=== PATIENT | female | born 1980 | race Caucasian/White ===

== ENCOUNTER 2024-10-12 05:46 | Inpatient (IN) | payer OTHER ==
[2024-10-12] MEDS: Cyclobenzaprine 10 MG Tab ONE (06:36)
[2024-10-12] MEDS: Cyclobenzaprine 10 MG Tab PO ONE (06:42)
[2024-10-12] MEDS: Acetaminophen 1,000 MG in Premix Bag 1 BAG IV ONE (06:46)
[2024-10-12] MEDS ORDERED: Bupivacaine 0.5% 50 ML MDV ONE (07:02)
[2024-10-12] MEDS: Lactated Ringers 1,000 ML IV SCH (07:08)
[2024-10-12] MEDS: Acetaminophen 500 MG Tab PO ONE (07:09)
[2024-10-12] MEDS ORDERED: Propofol 200 MG/20 ML SDV ONE (07:15)
[2024-10-12] MEDS ORDERED: Dexamethasone 4 MG/ML SDV ONE (07:15)
[2024-10-12] MEDS ORDERED: Ondansetron 4 MG/2 ML SDV ONE (07:15)
[2024-10-12] MEDS ORDERED: Succinylcholine 200 MG/10 ML MDV ONE (07:15)
[2024-10-12] MEDS ORDERED: Rocuronium 50 MG/5 ML Vial ONE ×2 (07:15→09:27)
[2024-10-12] MEDS ORDERED: Glycopyrrolate 0.2 MG/ML 5 ML MDV ONE (07:15)
[2024-10-12] MEDS ORDERED: Neostigmine Methylsulfate 10 MG/10 ML MDV ONE (07:15)
[2024-10-12] MEDS ORDERED: fentaNYL 250 MCG/5 ML SDV ONE (07:15)
[2024-10-12] MEDS: Heparin Sodium 5,000 Units/ML Vial SUBCUT ONE (07:16)
[2024-10-12] MEDS ORDERED: Ketamine 500 MG/5 ML MDV IV SCH (08:00)
[2024-10-12] MEDS: Bupivacaine 0.5%/EPINEPHrine 1:200,000 50 ML MDV ONE (10:03)
[2024-10-12] MEDS ORDERED: Ketorolac 30 MG/ML SDV ONE (11:25)
[2024-10-12] MEDS ORDERED: Ondansetron 4 MG/2 ML SDV IV PRN (11:27)
[2024-10-12] MEDS: Ondansetron 4 MG/2 ML SDV IVPUSH ONE (12:16)
[2024-10-12] MEDS: SCOPOLAMINE PATCH CHECK TOP SCH (14:58)
[2024-10-12] MEDS: Scopalamine 1mg/3day Transdermal Patch TRDERM SCH (14:58)
[2024-10-12] MEDS ORDERED: Simethicone 125 MG Tab.Chew PO PRN (15:03)
[2024-10-12] MEDS: Cyclobenzaprine 10 MG Tab PO SCH (15:30)
[2024-10-12] MEDS: Acetaminophen 1,000 MG in Premix Bag 1 BAG IV SCH (17:47)
[2024-10-12] MEDS: Ketorolac 15 MG/ML SDV IVPUSH SCH (17:56)
[2024-10-13] MEDS: MVI, Adult with Vitamin K 10 ML, Thiamine 200 MG in Dextrose 5%-Lactated Ringers 1,000 ML IV SCH (06:06)
[2024-10-13] MEDS: Heparin Sodium 5,000 Units/ML Vial SUBCUT SCH (06:12)
[2024-10-13] MEDS: Diatrizoate Meglumine/Diatrizoate Sodium 37% 120 ML Bottle PO SCH (08:38)
[2024-10-13] MEDS: Pantoprazole 40 MG Vial IV SCH (09:56)
== END 2024-10-13 12:55 | disposition home or self-care (01) | DRG 621 ==
LOC: JP.SDSSCHI 05:46 → UNDOADMIN 05:49 → JP.SDSSCHI 05:49 → JP.MS 11:28 → JP.SDSSCHI 11:28 → UNDODISIN 10-13 12:55
PROVIDERS: ADMIT Surgery; ATTEND Surgery
PROC: 0BQT0ZZ Repair Diaphragm, Open Approach (ICD-10-PCS; principal; 2024-10-12 08:00)
PROC: 0D160ZA Bypass Stomach to Jejunum, Open Approach (ICD-10-PCS; principal; 2024-10-12 08:00)
DX: E66.01 Morbid (severe) obesity due to excess calories (principal); Z68.44 Body mass index [BMI] 60.0-69.9, adult; I10 Essential (primary) hypertension; E78.5 Hyperlipidemia, unspecified; G47.30 Sleep apnea, unspecified; F32.A Depression, unspecified; F41.9 Anxiety disorder, unspecified; Z98.890 Other specified postprocedural states; Z87.891 Personal history of nicotine dependence; Z79.899 Other long term (current) drug therapy
CPT/HCPCS: 00797-QZ; 36415; 74018; 74018-26; 82947; 84703; 86850; 86900; 86901; A9270-GY; J0131; J0330; J0665; J0690; J1100; J1596; J1644; J1885; J2405; J2470; J2704; J2710; J3010; J3411; J3490; J7120; J7121; Q9963